=== PATIENT | male | born 1950 | race Caucasian/White ===

== ENCOUNTER → 2020-11-07 10:53 | Outpatient (BNVA) | payer MEDICARE, SELFPAY | PROVIDERS: Referring Provider Family Medicine; Visit Provider Orthopaedic Surgery | DX: M54.9 Dorsalgia, unspecified (principal); M47.816 Spondylosis without myelopathy or radiculopathy, lumbar region | CPT/HCPCS: 72120 ==

== ENCOUNTER 2020-11-14 14:30 | Outpatient (CLI) | payer MEDICARE, BC, SELFPAY ==
--- NOTE | 2020-11-14 16:00 | MR_ITS ---
WS: [id number] MRI LUMBAR SPINE NONCONTRAST HISTORY: M48.062 - Spinal stenosis, LEFT thigh numbness. COMPARISON: None available. TECHNIQUE: Sagittal and axial multisequence imaging is submitted. L1 and L2 retrolisthesis by 5 and 3 mm respectively. L5 anterolisthesis by 9 mm. L5-S1 posterior fusi on screws. Mild disc space narrowing and desiccation throughout the lumbar spine. More advanced degenerative dis c disease L5-S1. There is a small amount of marrow edema along the inferior endplate of L1. Conus terminates normally at L1. L1-L2: Mild annular disc bulging and facet arthritis. No central stenosis. Mild bilateral foraminal s tenosis. L2-L3: Moderate size LEFT paracentral disc protrusion contacts the ventral thecal sac and displaces t he traversing L3 nerve root posteriorly. Disc protrusion extends into the foramen and lateral recess causing moderate stenosis. There is an additional smaller disc protrusion in the RIGHT foramen with o nly mild stenosis. Small amount of fluid in the facet joints bilaterally. L3-L4: Diffuse annular disc bulging and osteophytic ridging. Mild ligamentum flavum hypertrophy and f acet arthritis. Mild bilateral foraminal stenosis. L4-L5: Mild osteophytic ridging without a focal disc protrusion. No stenosis. L5-S1: Large posterior laminectomy defects are present. Patulous thecal sac with clumping of the nerv e roots in the periphery from arachnoiditis. Mild to moderate bilateral foraminal stenosis predominan tly due to the anterolisthesis of L5. MR/MR lumbar spine wo con* [id number] IMPRESSION: 1. Grade 1 anterolisthesis of L5. 2. Prior L5-S1 posterior lumbar fusion with large posterior laminectomy defect s. 3. 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 4. Moderate-sized LEFT paracentral disc protrusion contacts and displaces the traversing LEFT L3 nerve root and extends into the foramen. 5. Mild to moderate bilateral foraminal stenosis at L5-S1 level. 6. Mild bilateral foraminal stenosis at L1-2 and L3-4.
--- NOTE | 2020-11-14 17:30 | MR_ITS ---
WS: [id number] MRI CERVICAL SPINE NONCONTRAST HISTORY: M54.2 - Cervicalgia, pain into LEFT shoulder. COMPARISON: None available. Technique: Multiplanar, multisequence noncontrast imaging of the cervical spine. C3 retrolisthesis by 4 mm and C5 anterolisthesis by 2 mm. Moderate disc space narrowing and desiccati on and vertebral body osteophytosis is moderate throughout the cervical spine. Signal within the cervical cord is normal. Visualized posterior fossa is unremarkable. Craniocervical junction, C1 and C2 relationship, odontoid process and soft tissues are normal. C2-C3: Mild disc bulging and vertebral body osteophytosis. Mild bilateral facet joint arthritis. Mild foraminal narrowing. C3-C4: Diffuse annular disc bulging and osteophytic ridging. Central disc protrusion with osteophytes encroach upon the ventral thecal sac. Complete effacement of CSF. Moderate central stenosis. Moderat e RIGHT and moderate to severe LEFT foraminal stenosis. There are large osteophytes measuring at leas t 6 mm extending into the neural foramen. Slightly greater osteophyte encroachment into the LEFT fora men. Bilateral mild facet joint arthritis. C4-C5: Moderate annular disc bulging and osteophytic ridging with a central disc protrusion. Mild jordan tral with moderate bilateral foraminal stenosis. Foraminal stenosis due to combination of disc and os teophyte disease. C5-C6: Mild disc bulging and osteophytic ridging. Mild bilateral facet joint arthritis. Osteophytes e ncroach upon the ventral thecal sac and the neural foramen. Slightly greater osteophyte encroachment in the proximal RIGHT foramen. There is mild central with bilateral foraminal stenosis. C6-C7: Diffuse annular disc bulging and osteophytic ridging. Central disc protrusion with near contac t upon the ventral thecal sac. Mild central and bilateral foraminal stenosis. C7-T1: Normal. Paraspinal soft tissue are normal. MR/MR cervical spin wo con* [id number] IMPRESSION: 1. Moderate degenerative spondylitic changes throughout the cervical spine. 2. C3 retrolisthesis by 4 mm and C5 anterolisthesis by 2 mm. 3. Moderate central stenosis at C3-4 due to combination of disc and osteophyte disease. Osteophytes contribute to moderate RIGHT with moderate to severe LEFT foraminal stenosis at the C3-4 level. 4. Mild central and moderate bilateral foraminal stenosis due to disc and oste ophyte disease at C4-5. 5. Mild central and bilateral foraminal stenosis at C5-6 and C6-7 due to disc and osteophyte disease.
== END 2020-11-14 14:31 | disposition home or self-care (01) ==
LOC: RADSHAW 14:38
PROVIDERS: PCP Family Medicine; Visit Provider Orthopaedic Surgery
DX: M48.062 Spinal stenosis, lumbar region with neurogenic claudication (principal); M48.02 Spinal stenosis, cervical region; M25.78 Osteophyte, vertebrae; M43.27 Fusion of spine, lumbosacral region; M51.26 Other intervertebral disc displacement, lumbar region; G03.9 Meningitis, unspecified; M48.07 Spinal stenosis, lumbosacral region
CPT/HCPCS: 72141; 72148

== ENCOUNTER → 2021-01-02 08:29 | Outpatient (BNVA) | payer MEDICARE, BC, SELFPAY | PROVIDERS: PCP Family Medicine; Referring Provider Physician Assistant; Visit Provider Anesthesiology Pain Medicine | DX: G89.29 Other chronic pain (principal); M54.2 Cervicalgia; M54.50 Low back pain, unspecified; Z79.891 Long term (current) use of opiate analgesic | CPT/HCPCS: 99202 ==